=== PATIENT | female | born 1985 | race African-American/Black ===

== ENCOUNTER 2021-04-21 12:00 | Emergency (ER) | payer MEDICAID ==
[~2021-04-21] VITALS: Ht 175 cm; Wt 148.0 kg
--- NOTE | 2021-04-21 12:16 | ED Chest Pain ---
General Chief Complaint: Chest Pain Stated Complaint: L SIDE CP/ARM PAIN/JAW PAIN Nursing Triage Note: PT STATES CHEST PAIN THAT STARTED A COUPLE DAYS AGO AND GETTING WORSE, PAIN IN JAW AND LT ARM. Source: patient Exam Limitations: no limitations History of Present Illness Date Seen by Provider: Apr 21, 2021 Time Seen by Provider: 12:05 Initial Comments Patient is a 35-year-old female with a history of hypertension who presents to the emergency room with a chief complaint of left-sided chest pain onset a couple of days ago. Patient states the pain is getting worse and currently rates it at a "7". She states it has been higher in pain intensity than that previously. She endorses some sweating with the pain but no nausea or shortness of breath. She has never had pain quite like this before. She denies any trau ma or heavy lifting prior to the onset of pain. She denies fevers, chills, cough or congestion/Covid symptoms. She has not tried Tylenol or ibuprofen for the pain. She has no personal history of coronary artery disease, she has never had a stress test before. Nothing really makes the pain any better or worse although she states laying on her left side may intensified a little bit. It radiates into her left jaw and into her left arm. No recent prolonged immobility, recent travel or personal or family history of blood clot that she is aware of. She has not taken any aspirin Timing/Duration: 2-3 days Severity/Quality: severe Location: central (and left sided) Radiation: jaw, arms (left) Activities at Onset: none Prior CP/Workup: no prior chest pain, no prior cardiac workup ASA po GOLF BALL MOLDER: No NTG SL GOLF BALL MOLDER: No Associated Symptoms: diaphoresis Allergies and Home Medications Allergies Coded Allergies: No Known Drug Allergies (Unverified , 04/21/21) Patient Home Medication List Home Medication List Reviewed: Yes Review of Systems Review of Systems Constitutional: see HPI EENTM: No Symptoms Reported Respiratory: No Symptoms Reported Cardiovascular: Chest Pain Gastrointestinal: Nausea Genitourinary: No Symptoms Reported Musculoskeletal: joint pain (left shoulder) Skin: no symptoms reported Psychiatric/Neurological: No Symptoms Reported All Other Systems Reviewed Negative Unless Noted: Yes Past Xhschru-Aryayr-Qcklgm Hx Past Medical History Last Menstrual Period: Apr 21, 2021 Physical Exam Vital Signs Vital Signs - First Documented 04/21/21 12:05 Temp 36.2 Pulse 97 Resp 22 B/P (MAP) 142/85 (104) Pulse Ox 98 O2 Delivery Room Air Capillary Refill : Less Than 3 Seconds Height, Weight, BMI Height: '" Weight: lbs. oz. kg; 48.00 BMI Method: General Appearance: No Apparent Distress, WD/WN HEENT: PERRL/EOMI Neck: Normal Inspection Respiratory: Lungs Clear, Normal Breath Sounds, No Accessory Muscle Use, No Respiratory Distress, Other (tenderness to left anterior chest wall, left anterior shoulder) Cardiovascular: Regular Rate, Rhythm, Normal Peripheral Pulses Gastrointestinal: Normal Bowel Sounds, Non Tender, Soft Extremity: Normal Capillary Refill, Normal Inspection, Normal Range of Motion, Non Tender, No Calf Tenderness, No Pedal Edema Neurologic/Psychiatric: Alert, Oriented x3, No Motor/Sensory Deficits, Normal Mood/Affect Skin: Normal Color, Warm/Dry, Other (no rashes) Progress/Results/Core Measures Results/Orders Lab Results Laboratory Tests Test 04/21/21 12:22 04/21/21 12:40 Range/Units White Blood Count 7.5 4.3-11.0 10^3/uL Red Blood Count 4.46 3.80-5.11 10^6/uL Hemoglobin 12.7 11.5-16.0 g/dL Hematocrit 37 35-52 % Mean Corpuscular Volume 82 80-99 fL Mean Corpuscular Hemoglobin 29 25-34 pg Mean Corpuscular Hemoglobin Concent 35 32-36 g/dL Red Cell Distribution Width 16.5 H 10.0-14.5 % Platelet Count 279 130-400 10^3/uL Mean Platelet Volume 11.6 9.0-12.2 fL Immature Granulocyte % (Auto) 0 % Neutrophils (%) (Auto) 63 42-75 % Lymphocytes (%) (Auto) 26 12-44 % Monocytes (%) (Auto) 8 0-12 % Eosinophils (%) (Auto) 2 0-10 % Basophils (%) (Auto) 1 0-10 % Neutrophils # (Auto) 4.7 1.8-7.8 X 10^3 Lymphocytes # (Auto) 2.0 1.0-4.0 X 10^3 Monocytes # (Auto) 0.6 0.0-1.0 X 10^3 Eosinophils # (Auto) 0.2 0.0-0.3 10^3/uL Basophils # (Auto) 0.0 0.0-0.1 10^3/uL Immature Granulocyte # (Auto) 0.0 0.0-0.1 10^3/uL Prothrombin Time 13.1 12.2-14.7 SEC INR Comment 1.0 0.8-1.4 Activated Partial Thromboplast Time 32 24-35 SEC D-Dimer 0.52 H 0.00-0.49 UG/ML Sodium Level 137 135-145 MMOL/L Potassium Level 3.9 3.6-5.0 MMOL/L Chloride Level 105 98-107 MMOL/L Carbon Dioxide Level 21 21-32 MMOL/L Anion Gap 11 5-14 MMOL/L Blood Urea Nitrogen 7 7-18 MG/DL Creatinine 0.94 0.60-1.30 MG/DL Estimat Glomerular Filtration Rate 80 BUN/Creatinine Ratio 7 Glucose Level 111 H 70-105 MG/DL Calcium Level 9.1 8.5-10.1 MG/DL Corrected Calcium 9.3 8.5-10.1 MG/DL Magnesium Level 2.1 1.6-2.4 MG/DL Total Bilirubin 0.4 0.1-1.0 MG/DL Aspartate Amino Transf (AST/SGOT) 13 5-34 U/L Alanine Aminotransferase (ALT/SGPT) 12 0-55 U/L Alkaline Phosphatase 86 40-136 U/L Myoglobin 57.5 10.0-92.0 NG/ML Troponin I < 0.028 <0.028 NG/ML Total Protein 7.3 6.4-8.2 GM/DL Albumin 3.8 3.2-4.5 GM/DL Serum Test, Qualitative NEGATIVE NEGATIVE Urine Color YELLOW Urine Clarity CLEAR Urine pH 6.0 5-9 Urine Specific [place] >=1.030 1.016-1.022 Urine Protein TRACE H NEGATIVE Urine Glucose (UA) NEGATIVE NEGATIVE Urine Ketones NEGATIVE NEGATIVE Urine Nitrite NEGATIVE NEGATIVE Urine Bilirubin NEGATIVE NEGATIVE Urine Urobilinogen 0.2 < = 1.0 MG/DL Urine Leukocyte Esterase NEGATIVE NEGATIVE Urine RBC (Auto) 1+ H NEGATIVE Urine RBC RARE /HPF Urine WBC NONE /HPF Urine Squamous Epithelial Cells 0-2 /HPF Urine Crystals NONE /LPF Urine Bacteria NEGATIVE /HPF Urine Casts NONE /LPF Urine Mucus NEGATIVE /LPF Urine Culture Indicated NO My Orders Orders - DENISE ROSALES MD Cbc With Automated Diff (04/21/21 12:13) Magnesium (04/21/21 12:13) Chest 1 View, Ap/Pa Only (04/21/21 12:13) Ekg Tracing (04/21/21 12:13) Comprehensive Metabolic Panel (04/21/21 12:13) Myoglobin Serum (04/21/21 12:13) Protime With Inr (04/21/21 12:13) Partial Thromboplastin Time (04/21/21 12:13) O2 (04/21/21 12:13) Monitor-Rhythm Ecg Trace Only (04/21/21 12:13) Ed Iv/Invasive Line Start (04/21/21 12:13) Troponin I [place] (04/21/21 12:13) Fibrin Degradation Products (04/21/21 12:13) Hcg,Qualitative Serum (04/21/21 12:13) Aspirin Chewable Tablet (Baby Aspirin Ch (04/21/21 12:30) Ua Culture If Indicated (04/21/21 12:44) Ketorolac Injection (Toradol Injection) (04/21/21 13:45) Medications Given in ED Vital Signs/I&O 04/21/21 04/21/21 04/21/21 12:05 13:44 14:31 Temp 36.2 36.2 36.2 Pulse 97 74 Resp 22 20 B/P (MAP) 142/85 (104) 122/71 Pulse Ox 98 97 O2 Delivery Room Air Room Air Blood Pressure Mean: 104 Progress Progress Note : Time: 14:17 Progress Note Reviewed patient's labs, imaging and EKG. No evidence at this time for acute coronary syndrome. Patient's risk factors would be some obesity, hypertension and smoking. She has no hypercholesterolemia diabetes or family history. She is much improved after IV Toradol. Rates her pain currently at a "4". Her heart rate is down in the 70s. She is not hypoxic or demonstrating any increased work of breathing. No evidence of pneumonia on chest x-ray. Heart score would be in the "low risk" category. As the troponin is negative and her pain has been ongoing for 3 days and considering risk factors. She does not need repeat troponin at this time. D-dimer is mildly elevated at 0.52. I do not believe with history and physical examination that she is at increased risk for pulmonary embolism. I am not going to scan her today. I did advise her if her symptoms return or worsen or she develops shortness of breath or productive cough that she needs to come back to the emergency room for reevaluation. We will give her referral information for a primary care physician. She does not have one locally. I recommended anti-inflammatories, quitting smoking, exercise and maintenance of her antihypertensives. She verbalized understanding. All questions are sought and answered. Patient stable for discharge Initial ECG Impression Date: Apr 21, 2021 Initial ECG Impression Time: 12:05 Initial ECG Rate: 96 Initial ECG Rhythm: Normal Sinus Initial ECG Intervals: Normal Initial ECG Impression: Normal Diagnostic Imaging Diagonstic Imaging: Xray Plain Films/CT/US/NM/MRI: chest Comments [facility], [place] NAME: TREVOR BUITRAGO [facility] REC#: [id number] PT STATUS: REG ER : 1985 PHYSICIAN: DENISE ROSALES MD ADMIT DATE: 04/21/21/ER Draft Date of Exam:04/21/21 CHEST 1 VIEW, AP/PA ONLY EXAMINATION: Chest 1 view HISTORY: Chest pain COMPARISON: None available. FINDINGS: The lungs are clear without edema or pneumonia. No pleural effusion or pneumothorax. Heart size is normal. IMPRESSION: 1. Clear lungs. Dictated on workstation # [id number] Dict: 04/21/21 1328 Trans: 04/21/21 1329 [facility] [phone] Interpreted by: DARWNI ROMAN MD Electronically signed by: Counseling-Asymptomatic: 3-10 minutes Follow-up with PCP to: Discuss Further Options Departure Impression Primary Impression: Chest pain Qualified Codes: R07.9 - Chest pain, unspecified Disposition: 01 HOME, SELF-CARE Condition: Stable Departure-Patient Inst. Decision time for Depature: 14:19 Referrals: [facility] [place] NO,LOCAL PHYSICIAN (PCP) Primary Care Physician Patient Instructions: Chest Pain, LOCAL PHYSICIAN LIST Add. Discharge Instructions: It is a good idea to quit smoking, Please keep taking your blood pressure medications. Try and follow a healthy diet and get some exercise. Follow up with a primary care physician. Come back to the ER for re-evaluation if you have any return of chest pain, especially with shortness of breath, coughing - especially with blood, nausea, fever or other emergent, concerning symptoms. DENISE ROSALES MD Apr 21, 2021 12:16
[2021-04-21] MEDS ORDERED: ASPIRIN 81 MG CHEW (CHILDREN'S ASA) PO ONE (12:30)
[2021-04-21 12:43] LABS: BASOPHILS % (AUTO) 1 % (0-10); EOSINOPHILS # (AUTO) 0.2 10^3/uL (0.0-0.3); EOSINOPHILS % (AUTO) 2 % (0-10); HEMATOCRIT 37 % (35-52); HEMOGLOBIN 12.7 g/dL (11.5-16.0); LYMPHOCYTES % (AUTO) 26 % (12-44); MEAN CORPUSCULAR HEMOGLOBIN 29 pg (25-34); MEAN CORPUSCULAR HGB CONC 35 g/dL (32-36); MEAN CORPUSCULAR VOLUME 82 fL (80-99); MEAN PLATELET VOLUME 11.6 fL (9.0-12.2); MONOCYTES # (AUTO) 0.6 X 10^3 (0.0-1.0); MONOCYTES % (AUTO) 8 % (0-12); NEUTROPHILS # (AUTO) 4.7 X 10^3 (1.8-7.8); NEUTROPHILS % (AUTO) 63 % (42-75); PLATELET COUNT 279 10^3/uL (130-400); WHITE BLOOD COUNT 7.5 10^3/uL (4.3-11.0)
[2021-04-21 12:48] LABS: PROTHROMBIN TIME PATIENT 13.1 SEC (12.2-14.7)
[2021-04-21 12:51] LABS: BILIRUBIN,URINE NEGATIVE (NEGATIVE); CLARITY,URINE CLEAR; COLOR,URINE YELLOW; GLUCOSE, URINE (UA) NEGATIVE (NEGATIVE); KETONES,URINE NEGATIVE (NEGATIVE); LEUKOCYTE ESTERASE ,URINE NEGATIVE (NEGATIVE); NITRITE,URINE NEGATIVE (NEGATIVE); PROTEIN,URINE TRACE (NEGATIVE)
[2021-04-21 12:53] LABS: ALBUMIN 3.8 GM/DL (3.2-4.5); POTASSIUM 3.9 MMOL/L (3.6-5.0)
[2021-04-21 12:54] LABS: CALCIUM 9.1 MG/DL (8.5-10.1)
[2021-04-21 12:56] LABS: TOTAL PROTEIN 7.3 GM/DL (6.4-8.2)
[2021-04-21 12:57] LABS: BILIRUBIN,TOTAL 0.4 MG/DL (0.1-1.0)
[2021-04-21 12:59] LABS: CREATININE SERUM 0.94 MG/DL (0.60-1.30)
[2021-04-21 13:03] LABS: MAGNESIUM 2.1 MG/DL (1.6-2.4)
[2021-04-21 13:06] LABS: BACTERIA,URINE NEGATIVE /HPF; RBC,URINE RARE /HPF; SQUAMOUS EPITHELIAL CELL,UR 0-2 /HPF
--- NOTE | 2021-04-21 13:30 | Diagnostic Imaging Report ---
EXAMINATION: Chest 1 view HISTORY: Chest pain COMPARISON: None available. FINDINGS: The lungs are clear without edema or pneumonia. No pleural effusion or pneumothorax. Heart size is normal. IMPRESSION: 1. Clear lungs. Dictated by: Dictated on workstation # [id number]
[2021-04-21] MEDS ORDERED: KETOROLAC 30 MG/ML VIAL IVP ONE (13:45)
[2021-04-21 14:31] VITALS: BP 122/71
== END 2021-04-21 14:27 | disposition home or self-care (01) ==
LOC: ER 12:02
DX: R07.9 Chest pain, unspecified (principal)
CPT/HCPCS: 36415; 71045; 80053; 81000; 83735; 83874; 84484; 84703; 85025; 85379; 85610; 85730; 93005; 93041; 96374

== ENCOUNTER 2021-12-25 01:03 | Emergency (ER) | payer MEDICAID ==
[~2021-12-25] VITALS: Ht 175 cm; Wt 148.0 kg
[2021-12-25] MEDS ORDERED: AMLO-251 (01:12)
[2021-12-25] MEDS ORDERED: ALBUTEROL (01:12)
[2021-12-25] MEDS ORDERED: KETOROLAC 60 MG/2 ML VIAL IM ONE (01:15)
[2021-12-25 01:19] LABS: BASOPHILS # (AUTO) 0.1 10^3/uL (0.0-0.1); BASOPHILS % (AUTO) 1 % (0-10); EOSINOPHILS # (AUTO) 0.2 10^3/uL (0.0-0.3); EOSINOPHILS % (AUTO) 2 % (0-10); HEMATOCRIT 38 % (35-52); HEMOGLOBIN 13.5 g/dL (11.5-16.0); LYMPHOCYTES # (AUTO) 3.2 10^3/uL (1.0-4.0); LYMPHOCYTES % (AUTO) 35 % (12-44); MEAN CORPUSCULAR HEMOGLOBIN 29 pg (25-34); MEAN CORPUSCULAR HGB CONC 36 g/dL (32-36); MEAN CORPUSCULAR VOLUME 81 fL (80-99); MEAN PLATELET VOLUME 11.6 fL (9.0-12.2); MONOCYTES # (AUTO) 0.6 10^3/uL (0.0-1.0); MONOCYTES % (AUTO) 7 % (0-12); NEUTROPHILS # (AUTO) 5.2 10^3/uL (1.8-7.8); NEUTROPHILS % (AUTO) 56 % (42-75); PLATELET COUNT 316 10^3/uL (130-400); WHITE BLOOD COUNT 9.3 10^3/uL (4.3-11.0)
[2021-12-25 01:21] LABS: ALBUMIN 3.8 GM/DL (3.2-4.5); CHLORIDE 108 MMOL/L (98-107); POTASSIUM 3.6 MMOL/L (3.6-5.0); SODIUM 136 MMOL/L (135-145)
[2021-12-25 01:22] LABS: CALCIUM 8.9 MG/DL (8.5-10.1)
[2021-12-25 01:23] LABS: GLUCOSE 91 MG/DL (70-105); TOTAL PROTEIN 7.3 GM/DL (6.4-8.2)
[2021-12-25 01:24] LABS: CARBON DIOXIDE 18 MMOL/L (21-32)
[2021-12-25 01:25] LABS: BILIRUBIN,TOTAL 0.3 MG/DL (0.1-1.0)
[2021-12-25 01:27] LABS: ALKALINE PHOSPHATASE 84 U/L (40-136); CREATININE SERUM 0.94 MG/DL (0.60-1.30); GFR ESTIMATED 80
[2021-12-25 01:28] LABS: BUN/CREATININE RATIO 7
[2021-12-25 01:29] LABS: BILIRUBIN,URINE NEGATIVE (NEGATIVE); CLARITY,URINE CLEAR; COLOR,URINE YELLOW; GLUCOSE, URINE (UA) NEGATIVE (NEGATIVE); KETONES,URINE NEGATIVE (NEGATIVE); LEUKOCYTE ESTERASE ,URINE 1+ (NEGATIVE); NITRITE,URINE NEGATIVE (NEGATIVE); PROTEIN,URINE NEGATIVE (NEGATIVE)
[2021-12-25 01:30] LABS: ALANINE AMINOTRANSFERASE 19 U/L (0-55); LIPASE 7 U/L (8-78)
[2021-12-25] MEDS ORDERED: KETOROLAC 30 MG/ML VIAL IVP ONE (01:30)
--- NOTE | 2021-12-25 01:33 | ED General ---
General Chief Complaint: General Problems/Pain Stated Complaint: CP,ABD PAIN,COUGH Nursing Triage Note: c/o left sided chest/abdominal pain, cough x2 weeks. Source of Information: Patient Exam Limitations: No Limitations History of Present Illness Date Seen by Provider: Dec 25, 2021 Time Seen by Provider: 01:15 Initial Comments 36-year-old female presents to the emergency department today via ambulance for left chest and left abdominal pain. Symptoms present for 2 weeks and constant. Describes a cramping sensation without radiation. No aggravating or alleviating factors. No nausea vomiting change in bowel or bladder habits. No cough or fevers. She has never had similar pains in the past. No nausea or vomiting. She rates it an 8/10. Allergies and Home Medications Allergies Coded Allergies: No Known Drug Allergies (Unverified , 04/21/21) Patient Home Medication List Home Medication List Reviewed: Yes Amlodipine Besylate (Amlodipine Besylate) 10 Mg Tablet, (Reported) Entered as Reported by: NIDIA JIANG on 12/25/21111 Last Action: New Order [Albuterol] , (Reported) Entered as Reported by: NIDIA JIANG on 12/25/21111 Last Action: New Order Review of Systems Review of Systems Constitutional: no symptoms reported EENTM: no symptoms reported Respiratory: no symptoms reported Cardiovascular: chest pain Gastrointestinal: abdominal pain Genitourinary: no symptoms reported Musculoskeletal: no symptoms reported Skin: no symptoms reported Psychiatric/Neurological: No Symptoms Reported Hematologic/Lymphatic: No Symptoms Reported Immunological/Allergic: no symptoms reported Past Yubhdhh-Stqurf-Zngeje Hx Patient Social History Tobacco Use?: Yes Substance use?: No Alcohol Use?: No Pt feels they are or have been: No Immunizations Up To Date First/Initial COVID19 Vaccinat: na Past Medical History Surgery/Hospitalization HX: htn, asthma Family Medical History Reviewed Nursing Family Hx No Pertinent Family Hx Physical Exam Vital Signs Vital Signs - First Documented 12/25/21 01:07 Temp 36.9 Pulse 93 Resp 18 B/P (MAP) 114/86 (95) Pulse Ox 98 O2 Delivery Room Air Capillary Refill : Less Than 3 Seconds Height, Weight, BMI Height: '" Weight: lbs. oz. kg; 48.00 BMI Method: General Appearance: No Apparent Distress, WD/WN HEENT: PERRL/EOMI, Normal ENT Inspection, Pharynx Normal Neck: Full Range of Motion, Normal Inspection, Non Tender, Supple Respiratory: Lungs Clear, Normal Breath Sounds, No Accessory Muscle Use, No Respiratory Distress, Other (Tenderness palpation even with light touch to left anterior chest wall, left abdomen and both upper and lower quadrants.) Cardiovascular: Regular Rate, Rhythm, No Edema, No Gallop, No JVD, No Murmur, Normal Peripheral Pulses Gastrointestinal: Normal Bowel Sounds, No Organomegaly, No Pulsatile Mass, Soft, Tenderness (Tenderness palpation and light touch diffusely about the left abdomen. No rebound or guarding. No mass organomegaly. No skin changes.) Back: Normal Inspection, No CVA Tenderness, No Vertebral Tenderness Extremity: Normal Capillary Refill, Normal Inspection, Normal Range of Motion, Non Tender, No Calf Tenderness Neurologic/Psychiatric: Alert, Oriented x3, Normal Mood/Affect Skin: Normal Color, Warm/Dry Lymphatic: No Adenopathy Progress/Results/Core Measures Suspected Sepsis SIRS Temperature: Pulse: 93 Respiratory Rate: 18 Laboratory Tests 12/25/21 01:07: White Blood Count 9.3 Blood Pressure 114 /86 Mean: 95 Laboratory Tests 12/25/21 01:07: Creatinine 0.94, Platelet Count 316, Total Bilirubin 0.3 Results/Orders Lab Results Laboratory Tests Test 12/25/21 01:07 12/25/21 01:20 Range/Units White Blood Count 9.3 4.3-11.0 10^3/uL Red Blood Count 4.63 3.80-5.11 10^6/uL Hemoglobin 13.5 11.5-16.0 g/dL Hematocrit 38 35-52 % Mean Corpuscular Volume 81 80-99 fL Mean Corpuscular Hemoglobin 29 25-34 pg Mean Corpuscular Hemoglobin Concent 36 32-36 g/dL Red Cell Distribution Width 14.6 H 10.0-14.5 % Platelet Count 316 130-400 10^3/uL Mean Platelet Volume 11.6 9.0-12.2 fL Immature Granulocyte % (Auto) 0 % Neutrophils (%) (Auto) 56 42-75 % Lymphocytes (%) (Auto) 35 12-44 % Monocytes (%) (Auto) 7 0-12 % Eosinophils (%) (Auto) 2 0-10 % Basophils (%) (Auto) 1 0-10 % Neutrophils # (Auto) 5.2 1.8-7.8 10^3/uL Lymphocytes # (Auto) 3.2 1.0-4.0 10^3/uL Monocytes # (Auto) 0.6 0.0-1.0 10^3/uL Eosinophils # (Auto) 0.2 0.0-0.3 10^3/uL Basophils # (Auto) 0.1 0.0-0.1 10^3/uL Immature Granulocyte # (Auto) 0.0 0.0-0.1 10^3/uL Sodium Level 136 135-145 MMOL/L Potassium Level 3.6 3.6-5.0 MMOL/L Chloride Level 108 H 98-107 MMOL/L Carbon Dioxide Level 18 L 21-32 MMOL/L Anion Gap 10 5-14 MMOL/L Blood Urea Nitrogen 7 7-18 MG/DL Creatinine 0.94 0.60-1.30 MG/DL Estimat Glomerular Filtration Rate 80 BUN/Creatinine Ratio 7 Glucose Level 91 70-105 MG/DL Calcium Level 8.9 8.5-10.1 MG/DL Corrected Calcium 9.1 8.5-10.1 MG/DL Total Bilirubin 0.3 0.1-1.0 MG/DL Aspartate Amino Transf (AST/SGOT) 17 5-34 U/L Alanine Aminotransferase (ALT/SGPT) 19 0-55 U/L Alkaline Phosphatase 84 40-136 U/L Troponin I < 0.028 <0.028 NG/ML Total Protein 7.3 6.4-8.2 GM/DL Albumin 3.8 3.2-4.5 GM/DL Lipase 7 L 8-78 U/L Serum Test, Qualitative NEGATIVE NEGATIVE Urine Color YELLOW Urine Clarity CLEAR Urine pH 6.0 5-9 Urine Specific [place] 1.015 L 1.016-1.022 Urine Protein NEGATIVE NEGATIVE Urine Glucose (UA) NEGATIVE NEGATIVE Urine Ketones NEGATIVE NEGATIVE Urine Nitrite NEGATIVE NEGATIVE Urine Bilirubin NEGATIVE NEGATIVE Urine Urobilinogen 0.2 < = 1.0 MG/DL Urine Leukocyte Esterase 1+ H NEGATIVE Urine RBC (Auto) NEGATIVE NEGATIVE Urine RBC NONE /HPF Urine WBC 2-5 /HPF Urine Squamous Epithelial Cells 0-2 /HPF Urine Crystals NONE /LPF Urine Bacteria TRACE /HPF Urine Casts NONE /LPF Urine Mucus NEGATIVE /LPF Urine Culture Indicated YES My Orders Orders - MATY ISRAEL DO Comprehensive Metabolic Panel (12/25/21 01:09) Lipase (12/25/21 01:09) Ua Culture If Indicated (12/25/21 01:09) Hcg,Qualitative Serum (12/25/21 01:09) Ct Abd/Pelvis Wo(Kidney Stone) (12/25/21 01:09) Cbc With Automated Diff (12/25/21 01:09) Chest 1 View, Ap/Pa Only (12/25/21 01:09) Ekg Tracing (12/25/21 01:09) Troponin I [place] (12/25/21 01:09) Ketorolac Injection (Toradol Injection) (12/25/21 01:15) Ketorolac Injection (Toradol Injection) (12/25/21 01:30) Urine Culture (12/25/21 01:20) Medications Given in ED Current Medications Medications Dose Ordered Sig/Andreia Route Start Time Stop Time Status Last Admin Dose Admin Ketorolac Tromethamine 30 mg ONCE ONCE IVP 12/25/21 01:30 12/25/21 01:31 DC 12/25/21 01:38 30 MG Vital Signs/I&O 12/25/21 01:07 Temp 36.9 Pulse 93 Resp 18 B/P (MAP) 114/86 (95) Pulse Ox 98 O2 Delivery Room Air Capillary Refill : Less Than 3 Seconds Blood Pressure Mean: 95 ECG EKG : Comment Sinus rhythm 79 bpm. Normal intervals. Normal axis. No ST or T wave abnormalities. No ectopy. No STEMI. Departure Communication (Admissions) Patient is hemodynamically stable with a nonsurgical exam. Chest x-ray is negative and cardiac work-up was negative as well. CT abdomen pelvis without contrast is negative. Labs are reassuring as is her exam. She is discharged in stable condition with supportive care. Impression Primary Impression: Chest wall pain Additional Impression: Abdominal pain Qualified Codes: R10.12 - Left upper quadrant pain Disposition: HOME, SELF-CARE Condition: Stable Departure-Patient Inst. Referrals: NO,LOCAL PHYSICIAN (PCP/Family) Primary Care Physician Patient Instructions: Acute Pain, Adult (DC) Add. Discharge Instructions: No emergent medical conditions identified for your symptoms. Your chest x-ray is normal. Your heart does not seem to be involved. The CT of your abdomen is normal. Labs are reassuring as is your exam. Follow-up with primary doctor for any nonemergent needs. Return to the emergency department for any severe concerns. All discharge instructions reviewed with patient and/or family. Voiced understanding. MATY ISRAEL DO Dec 25, 2021 01:33
[2021-12-25 01:54] LABS: BACTERIA,URINE TRACE /HPF; SQUAMOUS EPITHELIAL CELL,UR 0-2 /HPF
[2021-12-25 03:50] VITALS: BP 133/81
--- NOTE | 2021-12-25 06:40 | Diagnostic Imaging Report ---
PATIENT HISTORY: Chest pain. TECHNIQUE: Single frontal view of the chest. COMPARISON: 04/21/2021 FINDINGS: The lung volumes are normal. No focal consolidation is seen. Haziness of the lung bases is thought to be due to overlying soft tissue. No large pleural effusion or pneumothorax is seen. The cardiomediastinal silhouette is normal in size and contour. No acute osseous abnormality is seen. IMPRESSION: No acute pulmonary abnormality seen. Dictated by: Dictated on workstation # [id number]
--- NOTE | 2021-12-25 08:00 | Diagnostic Imaging Report ---
PROCEDURE: CT urinary tract, rule out kidney stone. TECHNIQUE: Multiple contiguous axial images were obtained through the abdomen and pelvis without the use of intravenous contrast. Auto Exposure Controls were utilized during the CT exam to meet ALARA standards for radiation dose reduction. INDICATION: Right-sided abdominal pain and chest pain COMPARISON: None FINDINGS: The lung bases are clear. The heart is normal in size. Liver demonstrates no focal lesions on this noncontrast exam. The liver measures 20 cm in length. The spleen appears normal. The pancreas appears normal. The adrenal glands appear normal. The left renal collecting system is mildly prominent, but no mina hydronephrosis is seen. There is no right hydronephrosis and no obstructing calculi are identified. The bowel loops are nondistended without obstruction. The appendix appears normal. There is a small fat-containing periumbilical hernia. No free fluid or free air seen. No acute osseous abnormality is seen. IMPRESSION: 1. No obstructing calculi or hydronephrosis. 2. Mild hepatomegaly. Findings regarding hepatomegaly were not included in the preliminary report, otherwise agree with the preliminary report. These additional findings were communicated to the Emergency Room via the additional findings tracking sheet. Dictated by: Dictated on workstation # [id number]
== END 2021-12-25 03:54 | disposition home or self-care (01) ==
LOC: EDUNIT# 01:03 → ER 01:04
DX: R07.89 Other chest pain (principal); R10.12 Left upper quadrant pain; R10.32 Left lower quadrant pain; Z72.0 Tobacco use; Z32.02 Encounter for pregnancy test, result negative; Z28.310 Unvaccinated for COVID-19
CPT/HCPCS: 36415; 71045; 74176; 80053; 81000; 83690; 84484; 84703; 85025; 87088; 93005

== ENCOUNTER 2022-01-30 18:08 | Emergency (ER) | payer MEDICAID ==
[~2022-01-30] VITALS: Ht 177.8 cm; Wt 150.0 kg
[~2022-01-30 18:08] MED LIST: ALBUTEROL; AMLO-251
[2022-01-30 19:15] VITALS: BP 161/111
== END 2022-01-30 20:15 | disposition left against medical advice (07) ==
LOC: EDUNIT# 18:08 → ER 18:11
DX: O26.891 Other specified pregnancy related conditions, first trimester (principal); R10.30 Lower abdominal pain, unspecified; Z28.310 Unvaccinated for COVID-19; Z3A.01 Less than 8 weeks gestation of pregnancy
CPT/HCPCS: 99281